=== PATIENT | female | born 1990 | race Two or more races ===

== ENCOUNTER 2018-04-03 13:51 | Emergency (ER) | payer SELFPAY ==
[2018-04-03 14:08] LABS: URINE HCG POC HCG POSITIVE (Negative)
[2018-04-03 14:22] LABS: BILIRUBIN,URINE NEGATIVE (NEG); CLARITY,URINE CLEAR; COLOR,URINE YELLOW; GLUCOSE,URINE NEGATIVE (NEG); NITRITE,URINE NEGATIVE (NEG); PROTEIN,URINE NEGATIVE (NEG-TRACE)
[2018-04-03 14:32] LABS: BACTERIA,URINE 0 /HPF (0-FEW); RBC,URINE 0 /HPF (0-2); SQUAMOUS EPITHELIAL CELL,UR MOD /LPF; WBC,URINE >40 /HPF (0-4)
[2018-04-03] MEDS: IV NORMAL SALINE 1000ML BAG 1,000 ML IV (14:40)
[2018-04-03 14:46] LABS: ADD MAN DIFF? NO
[2018-04-03 14:54] LABS: BASO % 0 % (0-3); EOS # 0.1 x10^3/uL (0.0-0.7); EOS % 1 % (0-3); HEMATOCRIT 35.8 % (36.0-47.0); LYMPH # 1.4 x10^3/uL (1.0-4.8); LYMPH % 21 % (24-48); MEAN CORPUSCULAR HEMOGLOBIN 27 pg (25-35); MEAN CORPUSCULAR HGB CONC 34 g/dL (31-37); MEAN CORPUSCULAR VOLUME 80 fL (79-100); MONO # 0.4 x10^3/uL (0.0-1.1); MONO % 6 % (0-9); NEUT # 4.7 x10^3uL (1.8-7.7); NEUT % 72 % (31-73); PLATELET COUNT 176 x10^3/uL (140-400); RED BLOOD COUNT 4.45 x10^6/uL (3.50-5.40); WHITE BLOOD COUNT 6.5 x10^3/uL (4.0-11.0)
[2018-04-03 14:59] LABS: ANION GAP 6 (6-14); BLOOD UREA NITROGEN 10 mg/dL (7-20); CALCIUM 8.3 mg/dL (8.5-10.1); CARBON DIOXIDE 27 mmol/L (21-32); CHLORIDE 103 mmol/L (98-107); CREATININE 0.7 mg/dL (0.6-1.0); GFR 100.4; GLUCOSE 92 mg/dL (70-99); POTASSIUM 3.8 mmol/L (3.5-5.1); SODIUM 136 mmol/L (136-145)
== END 2018-04-03 16:00 | disposition home or self-care (01) ==
LOC: ER 13:51
DX: O23.40 Unspecified infection of urinary tract in pregnancy, unspecified trimester (principal); Z3A.00 Weeks of gestation of pregnancy not specified
CPT/HCPCS: 36415; 76705; 80048; 81001; 81025; 85025; 96360; 99285-25; J7030

== ENCOUNTER 2018-05-17 10:57 | Emergency (ER) | payer SELFPAY ==
[~2018-05-17] VITALS: Ht 157.5 cm; Wt 68.9 kg
[~2018-05-17 10:57] MED LIST: NITR100C62 PO
[2018-05-17] MEDS ORDERED: ONDANSETRON ODT 4 MG TAB.RAPDIS. PO ONE (11:45)
[2018-05-17 11:51] LABS: BILIRUBIN,URINE NEGATIVE (NEG); CLARITY,URINE CLEAR; COLOR,URINE YELLOW; NITRITE,URINE NEGATIVE (NEG); PH,URINE 6.5; PROTEIN,URINE NEGATIVE (NEG-TRACE)
[2018-05-17 12:01] LABS: SQUAMOUS EPITHELIAL CELL,UR MOD /LPF
[2018-05-17 12:02] LABS: BACTERIA,URINE FEW /HPF (0-FEW)
[2018-05-17 12:03] LABS: RBC,URINE OCC /HPF (0-2)
[2018-05-17] MEDS ORDERED: ONDA4TAB10 SL (13:55)
--- NOTE | 2018-05-17 13:56 | PHYS DOC ---
Past Medical History Past Medical History: No Pertinent History Past Surgical History: No Surgical History Alcohol Use: None Drug Use: None Adult General Chief Complaint Chief Complaint: VOMITING IN HPI HPI Patient is a 27 year old [f__sex] who presents with [] Review of Systems Review of Systems Constitutional: Denies fever or chills [] Eyes: Denies change in visual acuity, redness, or eye pain [] HENT: Denies nasal congestion or sore throat [] Respiratory: Denies cough or shortness of breath [] Cardiovascular: No additional information not addressed in HPI [] GI: Denies abdominal pain, nausea, vomiting, bloody stools or diarrhea [] : Denies dysuria or hematuria [] Musculoskeletal: Denies back pain or joint pain [] Integument: Denies rash or skin lesions [] Neurologic: Denies headache, focal weakness or sensory changes [] Endocrine: Denies polyuria or polydipsia [] All other systems were reviewed and found to be within normal limits, except as documented in this note. Current Medications Current Medications Current Medications Medications (Trade) Dose Ordered Sig/Jon Start Time Stop Time Status Last Admin Dose Admin Ondansetron HCl (Zofran Odt) 4 mg 1X ONCE 05/17/18 11:45 05/17/18 11:46 DC 05/17/18 12:13 4 MG Allergies Allergies Allergies Coded Allergies Type Severity Reaction Last Updated Verified No Known Drug Allergies 04/03/18 No Physical Exam Physical Exam Constitutional: Well developed, well nourished, no acute distress, non-toxic appearance. [] HENT: Normocephalic, atraumatic, bilateral external ears normal, oropharynx moist, no oral exudates, nose normal. [] Eyes: PERRLA, EOMI, conjunctiva normal, no discharge. [] Neck: Normal range of motion, no tenderness, supple, no stridor. [] Cardiovascular:Heart rate regular rhythm, no murmur [] Lungs & Thorax: Bilateral breath sounds clear to auscultation [] Abdomen: Bowel sounds normal, soft, no tenderness, no masses, no pulsatile masses. [] Skin: Warm, dry, no erythema, no rash. [] Back: No tenderness, no CVA tenderness. [] Extremities: No tenderness, no cyanosis, no clubbing, ROM intact, no edema. [] Neurologic: Alert and oriented X 3, normal motor function, normal sensory function, no focal deficits noted. [] Psychologic: Affect normal, judgement normal, mood normal. [] Current Patient Data Vital Signs Vital Signs Date Time Temp Pulse Resp B/P (MAP) Pulse Ox O2 Delivery O2 Flow Rate FiO2 05/17/18 11:30 99.1 93 20 115/56 (75) 99 Room Air 99.1 Lab Values Laboratory Tests Test 05/17/18 11:26 05/17/18 11:28 Urine Collection Type Void Urine Color Yellow Urine Clarity Clear Urine pH 6.5 Urine Specific [place] 1.020 Urine Protein Negative mg/dL (NEG-TRACE) Urine Glucose (UA) Negative mg/dL (NEG) Urine Ketones (Stick) Negative mg/dL (NEG) Urine Blood Negative (NEG) Urine Nitrite Negative (NEG) Urine Bilirubin Negative (NEG) Urine Urobilinogen Dipstick 1.0 mg/dL (0.2 mg/dL) Urine Leukocyte Esterase Negative (NEG) Urine RBC Occ /HPF (0-2) Urine WBC 1-4 /HPF (0-4) Urine Squamous Epithelial Cells Mod /LPF Urine Bacteria Few /HPF (0-FEW) Urine Mucus Marked /LPF POC Urine HCG, Qualitative Hcg positive (Negative) EKG EKG [] Radiology/Procedures Radiology/Procedures [] Course & Med Decision Making Course & Med Decision Making Pertinent Labs and Imaging studies reviewed. (See chart for details) [] Dragon Disclaimer Dragon Disclaimer This electronic medical record was generated, in whole or in part, using a voice recognition dictation system. Departure Departure Impression: Primary Impression: Hyperemesis Disposition: 01 HOME, SELF-CARE Condition: STABLE Referrals: NO PCP (PCP) Patient Instructions: Diet - Hyperemesis Gravidarum, Hyperemesis Gravidarum Additional Instructions: Use the Zofran as directed to increase your fluid and food intake. Follow-up with your bereavement coordinator for your next scheduled visit. If worsening return to the emergency department. Scripts Ondansetron (ZOFRAN ODT) 4 Mg Tab.rapdis 1 TAB SL Q8HRS, #15 TAB Prov: RASHIDA PARK APRN 05/17/18 ARSHIDA PARK APRN May 17, 2018 13:56
[2018-05-17 14:23] VITALS: BP 107/59
== END 2018-05-17 14:24 | disposition home or self-care (01) ==
LOC: ER 10:57
DX: O21.0 Mild hyperemesis gravidarum (principal); Z3A.13 13 weeks gestation of pregnancy
CPT/HCPCS: 81001; 81025; 99283; Q0162

== ENCOUNTER 2018-06-13 22:48 | Emergency (ER) | payer SELFPAY ==
[~2018-06-13] VITALS: Ht 157.5 cm; Wt 70.3 kg
[~2018-06-13 22:48] MED LIST changes: +ONDA4TAB10 SL
--- NOTE | 2018-06-13 23:52 | PHYS DOC ---
Past Medical History Past Medical History: No Pertinent History Past Surgical History: No Surgical History Alcohol Use: None Drug Use: None Adult General Chief Complaint Chief Complaint: ABDOMINAL PAIN IN HPI HPI Patient is a 28 year old female who presents with left flank pain that radiates to left side abdomen. Patient reports she is 18 weeks with LMP 12/09/2017. A0. She sees Dr Rachel Jules and next appt is 2017. Denies any complications with . Denies vaginal bleeding. Does report small amount of fluid leaking yesterday but is unsure if it was urine. Pain started yesterday morning and has continued. Reports flank pain is constant and abdominal pain is intermittent. Denies fever, chills, nausea, vomiting, diarrhea or constipation. Offered Tylenol on arrival and refused. Review of Systems Review of Systems Constitutional: Denies fever or chills Eyes: Denies change in visual acuity, redness, or eye pain HENT: Denies nasal congestion or sore throat Respiratory: Denies cough or shortness of breath Cardiovascular: Denies chest pain, palpitations. GI: Denies nausea, vomiting, bloody stools or diarrhea. Intermittent left sided abdominal pain. : Denies dysuria or hematuria. Musculoskeletal:Left low back pain x two days Integument: Denies rash or skin lesions Neurologic: Denies headache, focal weakness or sensory changes Endocrine: Denies polyuria or polydipsia All other systems were reviewed and found to be within normal limits, except as documented in this note. Current Medications Current Medications Current Medications Medications (Trade) Dose Ordered Sig/Jon Start Time Stop Time Status Last Admin Dose Admin Sodium Chloride 1,000 ml @ 1,000 mls/hr Q1H 06/14/18 00:00 06/14/18 00:59 DC 06/14/18 00:00 1,000 MLS/HR Allergies Allergies Allergies Coded Allergies Type Severity Reaction Last Updated Verified No Known Drug Allergies 04/03/18 No Physical Exam Physical Exam Constitutional: Well developed, well nourished, no acute distress, non-toxic appearance. Smiling HENT: Normocephalic, atraumatic, bilateral external ears normal, oropharynx moist, no oral exudates, nose normal. Moist mucous membranes Eyes: PERRLA, EOMI, conjunctiva normal, no discharge. [] Neck: Normal range of motion, no tenderness, supple, no stridor. Cardiovascular:Heart rate regular rhythm, no murmur Lungs & Thorax: Bilateral breath sounds clear to auscultation Abdomen: Bowel sounds normal, soft, no tenderness, no masses, no pulsatile masses. Pelvic: OS closed and without erythema. Minimal Skin: Warm, dry, no erythema, no rash. [] Back: No tenderness, no CVA tenderness. [] Extremities: No tenderness, no cyanosis, no clubbing, ROM intact, no edema. [] Neurologic: Alert and oriented X 3, normal motor function, normal sensory function, no focal deficits noted. [] Psychologic: Affect normal, judgement normal, mood normal. [] Current Patient Data Vital Signs Vital Signs Date Time Temp Pulse Resp B/P (MAP) Pulse Ox O2 Delivery O2 Flow Rate FiO2 06/13/18 23:48 98.4 89 18 116/86 (96) 99 Room Air 98.4 Lab Values Laboratory Tests Test 06/13/18 23:40 06/14/18 00:13 Urine Collection Type Unknown Urine Color Smita Urine Clarity Clear Urine pH 6.0 Urine Specific [place] 1.025 Urine Protein Negative mg/dL (NEG-TRACE) Urine Glucose (UA) Negative mg/dL (NEG) Urine Ketones (Stick) Negative mg/dL (NEG) Urine Blood Negative (NEG) Urine Nitrite Negative (NEG) Urine Bilirubin Small (NEG) Urine Urobilinogen Dipstick 1.0 mg/dL (0.2 mg/dL) Urine Leukocyte Esterase Negative (NEG) Urine RBC Occ /HPF (0-2) Urine WBC 1-4 /HPF (0-4) Urine Squamous Epithelial Cells Mod /LPF Urine Bacteria Few /HPF (0-FEW) Urine Mucus Marked /LPF White Blood Count 7.6 x10^3/uL (4.0-11.0) Red Blood Count 4.03 x10^6/uL (3.50-5.40) Hemoglobin 12.1 g/dL (12.0-15.5) Hematocrit 34.1 % (36.0-47.0) L Mean Corpuscular Volume 85 fL (79-100) Mean Corpuscular Hemoglobin 30 pg (25-35) Mean Corpuscular Hemoglobin Concent 36 g/dL (31-37) Red Cell Distribution Width 17.6 % (11.5-14.5) H Platelet Count 185 x10^3/uL (140-400) Neutrophils (%) (Auto) 65 % (31-73) Lymphocytes (%) (Auto) 26 % (24-48) Monocytes (%) (Auto) 7 % (0-9) Eosinophils (%) (Auto) 1 % (0-3) Basophils (%) (Auto) 0 % (0-3) Neutrophils # (Auto) 5.0 x10^3uL (1.8-7.7) Lymphocytes # (Auto) 2.0 x10^3/uL (1.0-4.8) Monocytes # (Auto) 0.5 x10^3/uL (0.0-1.1) Eosinophils # (Auto) 0.1 x10^3/uL (0.0-0.7) Basophils # (Auto) 0.0 x10^3/uL (0.0-0.2) Maternal Serum HCG Beta Subunit 11094 mIU/mL (0-5) H Sodium Level 137 mmol/L (136-145) Potassium Level 3.9 mmol/L (3.5-5.1) Chloride Level 103 mmol/L (98-107) Carbon Dioxide Level 26 mmol/L (21-32) Anion Gap 8 (6-14) Blood Urea Nitrogen 7 mg/dL (7-20) Creatinine 0.6 mg/dL (0.6-1.0) Estimated GFR (Cockcroft-Gault) 119.0 BUN/Creatinine Ratio 12 (6-20) Glucose Level 84 mg/dL (70-99) Calcium Level 8.8 mg/dL (8.5-10.1) Total Bilirubin 0.3 mg/dL (0.2-1.0) Aspartate Amino Transferase (AST) 10 U/L (15-37) L Alanine Aminotransferase (ALT) 11 U/L (14-59) L Alkaline Phosphatase 57 U/L (46-116) Total Protein 7.1 g/dL (6.4-8.2) Albumin 3.0 g/dL (3.4-5.0) L Albumin/Globulin Ratio 0.7 (1.0-1.7) L Laboratory Tests 06/14/18 00:13 Laboratory Tests 06/14/18 00:13 Microbiology 9/17/18 Wet Prep - Final, Complete EKG EKG [] Radiology/Procedures Radiology/Procedures [] Course & Med Decision Making Course & Med Decision Making Pertinent Labs and Imaging studies reviewed. (See chart for details) [] Mahendra Disclaimer Mahendra Disclaimer This electronic medical record was generated, in whole or in part, using a voice recognition dictation system. Departure Departure Impression: Primary Impression: Abdominal pain during Additional Impression: Bacterial vaginosis Disposition: HOME, SELF-CARE Condition: STABLE Referrals: UNKNOWN PCP NAME (PCP) Patient Instructions: Abdominal Pain During , Adam-ga-Bezy, Bacterial Vaginosis, Round Ligament Pain Additional Instructions: Follow up with your OB as soon as possible. Take medication as prescribed. Wear belly band as discussed. Return immediately if problems or any concerns. Scripts Metronidazole (METRONIDAZOLE) 500 Mg Tablet 1 TAB PO BID, #14 TAB Prov: YAZMIN CUTLER APRN 06/14/18 Problem Qualifiers YAZMIN CUTLER APRN Jun 13, 2018 23:51
[2018-06-14] MEDS ORDERED: IV NORMAL SALINE 1000ML BAG 1,000 ML IV SCH
[2018-06-14 00:03] LABS: BILIRUBIN,URINE SMALL (NEG); CLARITY,URINE CLEAR; COLOR,URINE AMBER; NITRITE,URINE NEGATIVE (NEG); PROTEIN,URINE NEGATIVE (NEG-TRACE)
[2018-06-14 00:15] LABS: BACTERIA,URINE FEW /HPF (0-FEW); RBC,URINE OCC /HPF (0-2); SQUAMOUS EPITHELIAL CELL,UR MOD /LPF
[2018-06-14 00:21] LABS: BASO % 0 % (0-3); EOS # 0.1 x10^3/uL (0.0-0.7); EOS % 1 % (0-3); HEMATOCRIT 34.1 % (36.0-47.0); HEMOGLOBIN 12.1 g/dL (12.0-15.5); LYMPH % 26 % (24-48); MEAN CORPUSCULAR HEMOGLOBIN 30 pg (25-35); MEAN CORPUSCULAR HGB CONC 36 g/dL (31-37); MEAN CORPUSCULAR VOLUME 85 fL (79-100); MONO # 0.5 x10^3/uL (0.0-1.1); MONO % 7 % (0-9); NEUT % 65 % (31-73); PLATELET COUNT 185 x10^3/uL (140-400); RED BLOOD COUNT 4.03 x10^6/uL (3.50-5.40); RED CELL DISTRIBUTION WIDTH 17.6 % (11.5-14.5); WHITE BLOOD COUNT 7.6 x10^3/uL (4.0-11.0)
[2018-06-14 00:29] LABS: CALCIUM 8.8 mg/dL (8.5-10.1); CREATININE 0.6 mg/dL (0.6-1.0); POTASSIUM 3.9 mmol/L (3.5-5.1)
[2018-06-14 00:36] LABS: ALBUMIN/GLOBULIN RATIO 0.7 (1.0-1.7); TOTAL BILIRUBIN 0.3 mg/dL (0.2-1.0); TOTAL PROTEIN 7.1 g/dL (6.4-8.2)
--- NOTE | 2018-06-14 01:00 | RAD ---
Examination: Obstetric ultrasound limited HISTORY: History of left abdominal pelvic pain COMPARISON: None available FINDINGS: Single living intrauterine identified with heart rate of 141 bpm. movement is seen. Cardiac activity seen. position is cephalic. Biparietal diameter measures 3.83 cm corresponding to 17 weeks and 5 days. Head circumference measures 14.2 cm corresponding to 17 weeks and 4 days. Abdominal circumference measures 12.1 cm corresponding to 17 weeks and 6 days. Femur length measures 2.4 cm corresponding to 17 weeks and 2 days. Head circumference to abdominal circumference ratio 1.17. Estimated weight is 201 g. LMP is 02/07/2018. Clinical age 18 weeks and 1 day with expected date of delivery by LMP 11/14/2018. Estimated gestational age by this ultrasound 17 weeks and 4 days. Estimated date of delivery by this ultrasound 11/18/2018. Placenta is grade 0. Placenta is located in the fundus and in the posterior wall. The ovaries are not well-visualized. IMPRESSION: Single living intrauterine with heart rate of 141 bpm. Electronically signed by: Campos Hardy MD (06/14/2018 12:56 AM) [facility]
[2018-06-14] MEDS ORDERED: METR500T8 PO (01:46)
[2018-06-14 01:55] VITALS: BP 116/84
[2018-06-15 15:37] LABS: GC PROBE Negative (Negative)
== END 2018-06-14 01:56 | disposition home or self-care (01) ==
LOC: ER 22:48
DX: O23.592 Infection of other part of genital tract in pregnancy, second trimester (principal); M54.5 Low back pain; R10.9 Unspecified abdominal pain; B96.89 Other specified bacterial agents as the cause of diseases classified elsewhere; Z3A.18 18 weeks gestation of pregnancy
CPT/HCPCS: 36415; 76815; 80053; 81001; 84702; 85025; 87491; 87591; 99285; J7030; Q0111

== ENCOUNTER 2018-11-17 22:25 | Inpatient (IN) | payer SELFPAY ==
[~2018-11-17] VITALS: Ht 157.5 cm; Wt 83.5 kg
[~2018-11-17 22:25] MED LIST changes: +METR-34 PO
[2018-11-17] MEDS ORDERED: IV RINGERS,LACTATED 1000ML 1,000 ML IV PRN (22:45)
[2018-11-17 22:48] LABS: BILIRUBIN,URINE NEGATIVE (NEG); CLARITY,URINE CLEAR; COLOR,URINE YELLOW; NITRITE,URINE NEGATIVE (NEG); PH,URINE 6.5; PROTEIN,URINE NEGATIVE (NEG-TRACE)
[2018-11-17 22:53] LABS: BACTERIA,URINE FEW /HPF (0-FEW); RBC,URINE RARE /HPF (0-2)
[2018-11-17 22:54] LABS: SQUAMOUS EPITHELIAL CELL,UR MOD /LPF
[2018-11-17 22:56] LABS: BARBITURATES NEG (NEG); BENZODIAZEPINES NEG (NEG); CANNABINOIDS NEG (NEG); COCAINE NEG (NEG); METHADONE NEG (NEG); OPIATES NEG (NEG); PHENCYCLIDINE NEG (NEG)
[2018-11-17 22:57] LABS: AMPHETAMINE/METHAMPHETAMINE NEG (NEG)
[2018-11-18] MEDS ORDERED: ceFAZolin SODIUM 1 GM in IV DEXTROSE 5% 50 ML IV SCH (03:30)
[2018-11-18] MEDS ORDERED: BUTORPHANOL 2 MG/ML VIAL. IV PRN ×2 (10:15)
[2018-11-18] MEDS ORDERED: MAG HYDROX/ALUMINUM HYD/SIMETH 30 ML ORAL.SUSP PO PRN ×3 (10:15→20:15)
[2018-11-18] MEDS ORDERED: LIDOCAINE 1% PF 30 ML VIAL. INJ PRN (10:15)
[2018-11-18] MEDS ORDERED: TERBUTALINE 1 MG/ML VIAL. SQ PRN (10:15)
[2018-11-18] MEDS ORDERED: OXYTOCIN 30 UNIT/500 ML PREMIX 500 ML IV PRN ×4 (10:15→20:15)
[2018-11-18] MEDS ORDERED: CITRIC ACID/SODIUM CITRATE 30 ML SOLUTION. PO PRN (10:15)
[2018-11-18] MEDS ORDERED: 0.9 % SODIUM CHLORIDE 10 ML DISP.SYRIN. IV PRN ×3 (10:15→20:15)
[2018-11-18] MEDS: IV RINGERS,LACTATED 1000ML 1,000 ML IV SCH ×3 (10:33→23:43)
[2018-11-18 10:52] LABS: HEMATOCRIT 30.3 % (36.0-47.0); HEMOGLOBIN 9.6 g/dL (12.0-15.5); RED BLOOD COUNT 3.98 x10^6/uL (3.50-5.40); RED CELL DISTRIBUTION WIDTH 16.3 % (11.5-14.5); WHITE BLOOD COUNT 8.9 x10^3/uL (4.0-11.0)
[2018-11-18 11:00] VITALS: BP 136/86
--- NOTE | 2018-11-18 12:01 | PDOC1 ---
OB - History Hx of Present Care: Good Care Ultrasounds: Normal mid trimester US Obstetrical Complications: None Medical Complications: None Past Family/Social History * Past Medical, Surgical, Family and Obstetric Histories reviewed from chart. Rubella: Immune RPR/VDRL: Negative GBS Status: Negative HBsAG: Negative OB - Chief Complaint & HPI Date of Admission: Date of Admission: Nov 17, 2018 at 22:25 Chief Complaint/History : 5 Para: 4 EGA: 39 Reason for admission: active labor Admission Nurse Assessment Rev: Yes OB - Admission Exam Physical Exam Vitals: VS - Last 72 Hours, by Label Date Time Temp Pulse Resp B/P (MAP) Pulse Ox O2 Delivery O2 Flow Rate FiO2 11/18/18 11:00 98.5 85 18 136/86 (103) 98.5 HEENT: Normal Heart: Regular Rate Lungs: Clear Abdomen: Gravid, Non tender, Soft Extremities: Edema Reflexes: Normal Cervical Dilatation: 2cm Effacement: 75% Station: -3 Membranes: Intact Heart Rate: Normal Accelerations: Accelerations Present Decelerations: No decelerations Contractions on Admission: < 5 Minutes Apart Intensity: Moderate Text A: 39 wks IUP Active labor P: Admit for labor management. JACOB TIPTON Jr, MD Nov 18, 2018 12:01
[2018-11-18] MEDS: fentaNYL PF VIAL 100 MCG/2 ML VIAL IV PRN ×2 (15:04→16:13)
[2018-11-18] MEDS ORDERED: IBUPROFEN 400 MG TABLET. PO PRN (17:45)
[2018-11-18] MEDS ORDERED: SIMETHICONE 80 MG TAB.CHEW PO PRN ×2 (17:45→20:15)
[2018-11-18] MEDS ORDERED: diphenhydrAMINE HCL 25 MG CAPSULE PO PRN (17:45)
[2018-11-18] MEDS ORDERED: MAGNESIUM HYDROXIDE 2,400 MG/30 ML ORAL.SUSP. PO PRN ×2 (17:45→20:15)
[2018-11-18] MEDS ORDERED: ZOLPIDEM 5 MG TABLET. PO PRN ×2 (17:45→20:15)
[2018-11-18] MEDS ORDERED: HYDROCORTISONE 1% TOPICAL OINTMENT 30GM TUBE. TP PRN (17:45)
[2018-11-18] MEDS ORDERED: PHENYLEPH/MINERAL OIL/PETROLAT RECTAL OINTMENT 28GM TUBE. RC PRN (17:45)
[2018-11-18] MEDS ORDERED: BENZOCAINE 20% TOPICAL AEROSOL SPRAY 57GM CAN. TP PRN (17:45)
[2018-11-18] MEDS ORDERED: ACETAMINOPHEN 325 MG TABLET. PO PRN (17:45)
[2018-11-18] MEDS ORDERED: CITRIC ACID/SODIUM CITRATE 30 ML SOLUTION. PO ONE (19:30)
[2018-11-18] MEDS ORDERED: MORPHINE PF 5 MG/10 ML VIAL. ONE (20:07)
[2018-11-18] MEDS ORDERED: fentaNYL PF VIAL 100 MCG/2 ML VIAL ONE (20:07)
[2018-11-18] MEDS ORDERED: ONDANSETRON PF 4 MG/2 ML VIAL. IV PRN (20:15)
[2018-11-18] MEDS ORDERED: MMR per PROTOCOL. MC PRN (20:15)
[2018-11-18] MEDS ORDERED: oxyCODONE/APAP 5/325 1 TAB TABLET PO PRN (20:15)
[2018-11-18] MEDS ORDERED: diphenhydrAMINE ORAL ELIXIR 12.5 MG/5 ML ML PO PRN (20:15)
[2018-11-18] MEDS ORDERED: OXYTOCIN 10 UNIT/ML VIAL. ONE ×6 (20:17→20:25)
[2018-11-18] MEDS ORDERED: METOCLOPRAMIDE HCL 10 MG/2 ML VIAL. ONE (20:29)
--- NOTE | 2018-11-18 20:59 | PDOC ---
BRIEF OPERATIVE NOTE Pre-Op Diagnosis TIUP FTP Post-Op Diagnosis Same Procedure Performed Primary LTC/S Surgeon Ilene Incident Response Coordinator none Anesthesia Type: Regional Blood Loss 500cc Specimens Obtained Blood gases Findings male Complications none DEYA BELTRÁN MD Nov 18, 2018 20:59
--- NOTE | 2018-11-18 21:29 | OP ---
DATE OF SURGERY: 11/18/2018 PREOPERATIVE DIAGNOSIS: Term intrauterine , failure to progress. POSTOPERATIVE DIAGNOSIS: Term intrauterine , failure to progress. PROCEDURE: Primary low transverse . SURGEON: Praneeth Odom MD. MANAGER ORANGE: None. ANESTHESIA: Regional/spinal. ESTIMATED BLOOD LOSS: 500 mL. FINDINGS: Male , Apgars 8, 9 and 9, weight pending at time of this dictation. Normal uterus, tubes and ovaries. COMPLICATIONS: None. CONDITION: Stable. DESCRIPTION OF PROCEDURE: After risks, benefits, indications and alternatives were discussed in detail with the patient, the patient was brought to OR theater, placed in the supine position with left lateral uterine displacement. After adequate regional anesthesia, the patient was prepped and draped in usual sterile manner. A low transverse Pfannenstiel incision was made sharply with a scalpel, carried down through subcutaneous tissue with the scalpel and Bovie was used to isidra the fascia in the midline and extended laterally in each direction with Barnes scissors. Upper edge of rectus fascia was grasped x 2 with Gloria clamps. Underlying rectus muscle both bluntly and sharply with Bovie cautery. The same procedure was carried out on lower edge of rectus fascia. Rectus muscles split in midline and extended superiorly and inferiorly with Bovie cautery. Peritoneum was entered bluntly with gentle stretch on rectus muscle, room was made for delivery of the . Ace retractor was placed within the pelvic cavity. Low transverse hysterotomy incision was made sharply with a scalpel, extended laterally and upwardly with gloved hand. Care was taken not injuring underlying structures. Gloved hand was placed in the lower uterine segment, used to elevate head with fundal pressure from the automotive parts counter assistant and the was delivered on anterior abdominal wall. Infant cried spontaneously and moved all extremities. Cord was doubly clamped, transected cord between two clamps. Infant was bulb suctioned and handed to nursing staff in attendance. Cord segment was taken for pH. Cord blood samples were taken. Placenta delivered spontaneously, intact 3-vessel cord. Uterus was wiped free of any adherent membranes. Low transverse hysterotomy incision was reapproximated with 0 Monocryl in running locking manner, imbricated in a horizontal mattress stitch, fascia with 0 Monocryl. The bladder flap was reapproximated with 3-0 Vicryl in a running manner. The rectus muscle and the peritoneum were brought to the midline with 3-0 Vicryl in a horizontal mattress stitch fashion. Rectus muscle was inspected and noted to be hemostatic. Rectus fascia was reapproximated with a self-retaining 0 PDS. Subcutaneous tissue was irrigated copiously with warm normal saline. Aureliano's fascia was reapproximated with 2-0 plain. Skin was reapproximated with Insorb daly. Sponge, needle, instrument counts correct x 2 per nursing staff. The patient went to postop anesthesia recovery in stable condition. PRANEETH ODOM MD DR: KERRY/stephie JOB#: [id number] / [id number]
[2018-11-18] MEDS ORDERED: IBUPROFEN 400 MG TABLET. PO SCH (22:00)
[2018-11-19] MEDS: KETOROLAC 30 MG/ML VIAL. IV PRN ×2 (00:16→10:23)
[2018-11-19 00:18] VITALS: BP 102/52
[2018-11-19 01:10] VITALS: BP 97/63
[2018-11-19 05:45] VITALS: BP 108/54
[2018-11-19 06:00] LABS: BASO % 0 % (0-3); EOS % 0 % (0-3); HEMATOCRIT 24.7 % (36.0-47.0); HEMOGLOBIN 7.9 g/dL (12.0-15.5); LYMPH # 1.6 x10^3/uL (1.0-4.8); LYMPH % 10 % (24-48); MEAN CORPUSCULAR HEMOGLOBIN 24 pg (25-35); MEAN CORPUSCULAR HGB CONC 32 g/dL (31-37); MEAN CORPUSCULAR VOLUME 76 fL (79-100); MONO # 0.8 x10^3/uL (0.0-1.1); MONO % 5 % (0-9); NEUT # 13.9 x10^3uL (1.8-7.7); NEUT % 85 % (31-73); PLATELET COUNT 160 x10^3/uL (140-400); RED BLOOD COUNT 3.26 x10^6/uL (3.50-5.40); RED CELL DISTRIBUTION WIDTH 16.5 % (11.5-14.5); WHITE BLOOD COUNT 16.4 x10^3/uL (4.0-11.0)
[2018-11-19] MEDS ORDERED: FERROUS SULFATE 325 MG TABLET. PO SCH (08:00)
[2018-11-19 09:34] LABS: % LYMPHS 14 % (24-48); % SEGS 86 % (35-66); PLT ESTIMATE ADEQUATE (ADEQUATE)
[2018-11-19 09:36] LABS: HYPOCHROMIA SLIGHT
[2018-11-19] MEDS: IV RINGERS,LACTATED 1000ML 1,000 ML IV SCH (09:52)
[2018-11-19] MEDS: DOCUSATE SODIUM 100 MG CAPSULE. PO PRN (10:23)
--- NOTE | 2018-11-19 13:27 | NUR ---
SS following up with referral for WIC information. SS met with mother and infant RN and they reported no other needs at this time. SS met with infants mother in room and provided information for WIC. Infants mother reported no other needs at this time.
[2018-11-19 15:00] VITALS: BP 95/56
[2018-11-19 18:15] VITALS: BP 91/49
[2018-11-19] MEDS: IBUPROFEN 400 MG TABLET. PO SCH (18:28)
[2018-11-19] MEDS: oxyCODONE/APAP 5/325 1 TAB TABLET PO PRN (18:29)
[2018-11-19 23:06] VITALS: BP 97/52
[2018-11-20] MEDS: IBUPROFEN 400 MG TABLET. PO SCH ×3 (04:09→21:52)
[2018-11-20] MEDS: oxyCODONE/APAP 5/325 1 TAB TABLET PO PRN ×3 (04:09→18:21)
[2018-11-20 06:02] VITALS: BP 112/72
--- NOTE | 2018-11-20 11:19 | PDOC ---
Provider Note Provider Note Doing well VSS Incision CDI FU in AM DEYA BELTRÁN MD Nov 20, 2018 11:19
[2018-11-20 11:37] VITALS: BP 106/69
[2018-11-20] MEDS: FERROUS SULFATE 325 MG TABLET. PO SCH ×2 (11:43→18:20)
[2018-11-20 18:20] VITALS: BP 107/70
[2018-11-20 23:11] VITALS: BP 109/72
[2018-11-21] MEDS: IBUPROFEN 400 MG TABLET. PO SCH ×2 (03:18→13:25)
[2018-11-21 06:17] VITALS: BP 115/65
--- NOTE | 2018-11-21 08:03 | PDOC3 ---
OB DISCHARGE SUMMARY DATE OF ADMISSION: 11/18/18 DATE OF DISCHARGE: 11/21/18 REASON FOR ADMISSION: section INTRAPARTUM PROCEDURES: : Low Cerv Trans DISCHARGE DIAGNOSIS: Term Delivered DISCHARGE INFORMATION: Activity (ad tere), Diet (regular), Instructions (pelvic rest x 6 wks, no driving x 2 wks, no lifting > 20 lbs x 6 wks) HOSPITAL COURSE Term gestation delivered via repeat c/s without complications. JACOB TIPTON Jr, MD Nov 21, 2018 08:03
--- NOTE | 2018-11-21 08:03 | DISCH ---
DISCHARGE INSTRUCTIONS Condition on Discharge Condition on Discharge: Stable Activity After Discharge Activity Instructions for Disc: Activity as tolerated Lifting Instructions after Dis: No heavy lifting Driving Instructions after Dis: No driving for 2 weeks Diet after Discharge Diet after Discharge: Regular Contacting the DRBrad after DC Call your doctor for: Concerns you may have Follow-Up Follow up with: Dr. Odom in 1 week. JACOB TIPTON Jr, MD Nov 21, 2018 08:03
[2018-11-21] MEDS ORDERED: OXYC1TAB15 PO (08:05)
[2018-11-21] MEDS ORDERED: NAPR-514 PO (08:05)
[2018-11-21] MEDS ORDERED: DOCU-109 PO (08:05)
[2018-11-21] MEDS: DOCUSATE SODIUM 100 MG CAPSULE. PO PRN (08:20)
[2018-11-21] MEDS: FERROUS SULFATE 325 MG TABLET. PO SCH ×2 (08:20→17:45)
[2018-11-21] MEDS: oxyCODONE/APAP 5/325 1 TAB TABLET PO PRN ×4 (08:21→17:45)
[2018-11-21 12:28] VITALS: BP 106/73
[2018-11-21 17:40] VITALS: BP 123/67
--- NOTE | 2018-11-21 17:50 | NUR ---
Discharge Note: Pt. denies questions regarding discharge care instructions and [place] Policy. Significant other is going to pharmacy to sisal picker Pt.'s prescriptions. Additional vaginal pads, underwear, and breast pads provided. Pt. reports successful use of breast pump as instructed by RN. Pt. denies needs at this time. Discharged to Boarder Status. Ismael Schultz RN
== END 2018-11-21 17:50 | disposition home or self-care (01) | DRG 788 ==
LOC: 3 SO LND 22:25 → OBSVTOIN 22:25 → INTOOBSV 22:25 → 3 NORTH 11-19 00:12
PROVIDERS: ADMIT Specialist; ATTEND Specialist
PROC: 10D00Z1 Extraction of Products of Conception, Low, Open Approach (ICD-10-PCS; principal; 2018-11-18)
DX: O62.2 Other uterine inertia (principal); Z37.0 Single live birth; Z3A.39 39 weeks gestation of pregnancy
CPT/HCPCS: 36415; 80307; 81001; 85007; 85025; 85027; 86592; 86850; 86900; 86901; 87086; J0690; J0696; J1885; J2270; J2590; J2765; J3010; J7120

== ENCOUNTER 2020-10-24 18:25 | Emergency (ER) | payer SELFPAY ==
[~2020-10-24] VITALS: Ht 172.7 cm; Wt 93.6 kg
[~2020-10-24 18:25] MED LIST changes: +DOCU-109 PO; +NAPR-514 PO; +OXYC1TAB15 PO
--- NOTE | 2020-10-24 18:58 | PHYS DOC ---
Past Medical History Past Medical History: No Pertinent History Past Surgical History: No Surgical History Smoking Status: Never Smoker Alcohol Use: None Drug Use: None General Adult EDM: Chief Complaint: VAGINAL BLEEDING HPI: HPI: Patient is a 30 year old female who presents with vaginal bleeding going thro ugh 5-6 pads a day for the last 3 weeks and she states about 2 days ago she began having some bright red clots at any given time. States she does have a Mirena in place. 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 She states she is having sharp right lower quadrant pain with this. She states that she does not have any concerns for sexually transmitted diseases at this time. She denies any abnormal other vaginal discharge or signs of bleeding. She states she usually has a period with her Mirena but it does not usually last this long. Patient denies nausea, vomiting, diarrhea, constipation, chest pain, shortness of air, cough, nasal congestion, headache, numbness or tingling, focal weakness. She does state that she does feel some generalized allover weakness and some dizziness at times. Rates her pain 7 out of 10 states it stays in the right lower quadrant does not radiate. States nothing makes it better or worse. She did take some ibuprofen at 1500 today. Review of Systems: Review of Systems: Constitutional: Denies fever or chills. [] Eyes: Denies change in visual acuity. [] HENT: Denies nasal congestion or sore throat. [] Respiratory: Denies cough or shortness of breath. [] Cardiovascular: Denies chest pain or edema. [] GI: +RLQ abdominal pain, denies nausea, vomiting, bloody stools or diarrhea. [] : Denies dysuria. +Vaginal bleeding x 3 weeks[] Musculoskeletal: Denies back pain or joint pain. +Generalized weakness[] Integument: Denies rash. [] Neurologic: Denies headache, focal weakness or sensory changes. +Dizziness [] Endocrine: Denies polyuria or polydipsia. [] Lymphatic: Denies swollen glands. [] Psychiatric: Denies depression or anxiety. [] Heart Score: Risk Factors: Risk Factors: DM, Current or recent (<one month) smoker, HTN, HLP, family history of CAD, obesity. Risk Scores: Score 0 - 3: 2.5% MACE over next 6 weeks - Discharge Home Score 4 - 6: 20.3% MACE over next 6 weeks - Admit for Clinical Observation Score 7 - 10: 72.7% MACE over next 6 weeks - Early Invasive Strategies Allergies: Allergies: Allergies Coded Allergies Type Severity Reaction Last Updated Verified No Known Drug Allergies 04/03/18 No Physical Exam: PE: Constitutional: Well developed, well nourished, no acute distress, non-toxic appearance. [] HENT: Normocephalic, atraumatic, bilateral external ears normal, oropharynx moist, no oral exudates, nose normal. [] Eyes: PERRLA, EOMI, conjunctiva normal, no discharge. [] Neck: Normal range of motion, no tenderness, supple, no stridor. [] Cardiovascular:Heart rate regular rhythm, no murmur [] Lungs & Thorax: Bilateral breath sounds clear to auscultation [] Abdomen: Bowel sounds normal, soft, RLQ tenderness, no masses, no pulsatile masses. [] Skin: Warm, dry, no erythema, no rash. [] Back: No tenderness, no CVA tenderness. [] Extremities: No tenderness, no cyanosis, no clubbing, ROM intact, no edema. [] Neurologic: Alert and oriented X 3, normal motor function, normal sensory function, no focal deficits noted. [] Psychologic: Affect normal, judgement normal, mood normal. [] Current Patient Data: Labs: Laboratory Tests Test 10/24/20 18:38 POC Urine HCG, Qualitative Hcg negative (Negative) EKG: EKG: [] Radiology/Procedures: Radiology/Procedures: [] Impression: [facility] [address] [place], [place] [id number] IMAGING REPORT Signed PATIENT: KHLOE MONDRAGON GACCOUNT: [id number] : 1990 LOCATION: ER AGE: 30 SEX: F EXAM STATUS: REG ER ORD. PHYSICIAN: DERRELL REYES APRN REASON: right lower quad pain, heavy vaginal bleeding x 3 weeks PROCEDURE: PELVIS COMPLETE Ultrasound pelvis complete HISTORY: Right lower quadrant pain and heavy vaginal bleeding for 3 weeks Sonographic examination of the pelvis was performed by transabdominal technique. Multiple static images were obtained. There is an IUD in the uterus which appears appropriately positioned. The ovaries appear normal normal blood flow. The right ovary measures 3.1 x 1.8 x 1.5 cm. Left ovary measures 3.5 x 2.3 x 2.5 cm. Interrogation of the right lower quadrant was performed but demonstrates no focal abnormality. The appendix is not identified. IMPRESSION: Negative examination. Electronically signed by: Mariam Wyatt III, MD (10/24/2020 10:13 PM) [facility] DICTATED and SIGNED BY: MARIAM WYATT III, MD DATE: 10/24/20 [id number] 0 Course & Med Decision Making: Course & Med Decision Making Pertinent Labs and Imaging studies reviewed. (See chart for details) See HPI. Alert and oriented x4. Ambulatory with a steady gait. Skin pink warm and dry. Afebrile. Vital signs within normal limits. Abdomen is soft but tender to the right lower quadrant. Chlamydia and gonorrhea is sent off and a wet prep was done. No CVA tenderness. She denies any urinary symptoms. Pelvic Exam: Child Care Aide present Abdomen: RLQ External Genitalia: Normal Skin Speculum: Normal vaginal mucosa, small amount bloody cervical discharge, no Clots Bimanual: No adnexal masses or tenderness, No CMT Blood work is unremarkable. Urine appears it may be infected. Ultrasound shows no acute findings. Patient can follow-up with her doctor as planned on 11. [] Dragon Disclaimer: Dragon Disclaimer: This electronic medical record was generated, in whole or in part, using a voice recognition dictation system. Departure Departure Impression: Primary Impression: Vaginal bleeding Additional Impression: UTI (urinary tract infection) Qualified Codes: N39.0 - Urinary tract infection, site not specified; R31.9 - Hematuria, unspecified Disposition: DC HOME SELF CARE/HOMELESS Condition: STABLE Referrals: UNKNOWN PCP NAME (PCP) Patient Instructions: Urinary Tract Infection Additional Instructions: Drink plenty of fluids. Follow-up with your primary care physician as soon as p ossible or the SOFTWARE QUALITY ANALYST. Take Tylenol or ibuprofen to help with your pain. Take medication as prescribed and with food. If you begin to go through more than 1 pad an hour return to the emergency room. Scripts Cephalexin (CEPHALEXIN) 500 Mg Capsule 1 CAP PO BID, #20 CAP Prov: DERRELL REYES APRN 10/24/20 DERRELL REYES APRN Oct 24, 2020 18:58
[2020-10-24 19:19] LABS: BILIRUBIN,URINE SMALL (NEG); CLARITY,URINE CLOUDY; COLOR,URINE AMBER; NITRITE,URINE NEGATIVE (NEG); PROTEIN,URINE 30 mg/dL (NEG-TRACE)
[2020-10-24 19:25] LABS: BASO % 0 % (0-3); EOS # 0.1 x10^3/uL (0.0-0.7); EOS % 1 % (0-3); HEMATOCRIT 35.9 % (36.0-47.0); HEMOGLOBIN 12.6 g/dL (12.0-15.5); LYMPH # 2.6 x10^3/uL (1.0-4.8); LYMPH % 31 % (24-48); MEAN CORPUSCULAR HEMOGLOBIN 31 pg (25-35); MEAN CORPUSCULAR HGB CONC 35 g/dL (31-37); MEAN CORPUSCULAR VOLUME 88 fL (79-100); MONO # 0.4 x10^3/uL (0.0-1.1); MONO % 5 % (0-9); NEUT # 5.3 x10^3/uL (1.8-7.7); NEUT % 63 % (31-73); PLATELET COUNT 187 x10^3/uL (140-400); RED BLOOD COUNT 4.08 x10^6/uL (3.50-5.40); RED CELL DISTRIBUTION WIDTH 12.9 % (11.5-14.5); WHITE BLOOD COUNT 8.5 x10^3/uL (4.0-11.0)
[2020-10-24 19:33] LABS: BACTERIA,URINE FEW /HPF (0-FEW); RBC,URINE TNTC /HPF (0-2)
[2020-10-24 19:34] LABS: PROTHROMBIN TIME PATIENT 13.8 SEC (11.7-14.0)
[2020-10-24 19:39] LABS: CALCIUM 8.8 mg/dL (8.5-10.1); CREATININE 0.7 mg/dL (0.6-1.0); GFR 98.3; POTASSIUM 3.6 mmol/L (3.5-5.1)
[2020-10-24 19:45] LABS: ALBUMIN 3.9 g/dL (3.4-5.0); ALBUMIN/GLOBULIN RATIO 1.2 (1.0-1.7); TOTAL BILIRUBIN 0.4 mg/dL (0.2-1.0); TOTAL PROTEIN 7.1 g/dL (6.4-8.2)
[2020-10-24] MEDS ORDERED: IV NORMAL SALINE 1000ML BAG 1,000 ML IV ONE (19:45)
[2020-10-24] MEDS ORDERED: fentaNYL PF VIAL 100 MCG/2 ML VIAL IVP ONE (20:00)
[2020-10-24 21:08] VITALS: BP 122/65
--- NOTE | 2020-10-24 22:16 | RAD ---
Ultrasound pelvis complete HISTORY: Right lower quadrant pain and heavy vaginal bleeding for 3 weeks Sonographic examination of the pelvis was performed by transabdominal technique. Multiple static imag es were obtained. There is an IUD in the uterus which appears appropriately positioned. The ovaries appear normal kala l blood flow. The right ovary measures 3.1 x 1.8 x 1.5 cm. Left ovary measures 3.5 x 2.3 x 2.5 cm. Interrogation of the right lower quadrant was performed but demonstrates no focal abnormality. The ap pendix is not identified. IMPRESSION: Negative examination. Electronically signed by: Steve Craven III, MD (10/24/2020 10:13 PM) [facility]
[2020-10-24] MEDS ORDERED: CEPH500C PO (22:38)
[2020-10-27 01:11] LABS: GC PROBE Negative (Negative)
== END 2020-10-24 23:20 | disposition home or self-care (01) ==
LOC: ER 18:25
DX: N39.0 Urinary tract infection, site not specified (principal); R31.9 Hematuria, unspecified
CPT/HCPCS: 36415; 76856; 80053; 81001; 81025; 85025; 85610; 86850; 86900; 86901; 87086; 87491; 87591; 96361; 96374; 99285; J3010; J7030; Q0111

== ENCOUNTER 2021-11-25 20:50 | Emergency (ER) | payer SELFPAY ==
[~2021-11-25] VITALS: Ht 157.5 cm; Wt 71.0 kg
[~2021-11-25 20:50] MED LIST changes: +CEPH500C PO
[2021-11-25 23:24] LABS: BASO % 0 % (0-3); EOS # 0.1 x10^3/uL (0.0-0.7); EOS % 2 % (0-3); HEMATOCRIT 36.5 % (36.0-47.0); LYMPH % 18 % (24-48); MEAN CORPUSCULAR HEMOGLOBIN 26 pg (25-35); MEAN CORPUSCULAR HGB CONC 33 g/dL (31-37); MEAN CORPUSCULAR VOLUME 79 fL (79-100); MONO # 0.5 x10^3/uL (0.0-1.1); MONO % 9 % (0-9); NEUT # 3.9 x10^3/uL (1.8-7.7); NEUT % 71 % (31-73); PLATELET COUNT 173 x10^3/uL (140-400); RED CELL DISTRIBUTION WIDTH 20.6 % (11.5-14.5); WHITE BLOOD COUNT 5.6 x10^3/uL (4.0-11.0)
[2021-11-25 23:36] LABS: CALCIUM 8.1 mg/dL (8.5-10.1); CREATININE 0.6 mg/dL (0.6-1.0); GFR 116.6; POTASSIUM 3.6 mmol/L (3.5-5.1)
[2021-11-25 23:40] LABS: BILIRUBIN,URINE NEGATIVE (NEG); CLARITY,URINE CLEAR; COLOR,URINE YELLOW
[2021-11-25 23:41] LABS: BACTERIA,URINE 0 /HPF (0-FEW); NITRITE,URINE NEGATIVE (NEG); PH,URINE 6.5 (<5.0-8.0); PROTEIN,URINE TRACE mg/dL (NEG-TRACE); RBC,URINE OCC /HPF (0-2); WBC,URINE OCC /HPF (0-4)
[2021-11-25 23:44] LABS: INFLUENZA A PATIENT NEGATIVE (NEGATIVE); INFLUENZA B PATIENT NEGATIVE (NEGATIVE)
[2021-11-25 23:44] LABS: ALBUMIN 3.5 g/dL (3.4-5.0); ALBUMIN/GLOBULIN RATIO 0.8 (1.0-1.7); TOTAL BILIRUBIN 0.2 mg/dL (0.2-1.0); TOTAL PROTEIN 7.8 g/dL (6.4-8.2)
--- NOTE | 2021-11-25 23:49 | RAD ---
Exam: Ultrasound OB less than 14 weeks Indication: Vaginal bleeding Technique: Real-time grayscale and color Doppler images of the pelvis were obtained by the department hollow ware maker. Comparisons: None FINDINGS: Uterus measures 11 x 7.9 x 7.8 cm. Within the endometrium there is a gestational sac with internal yo lk sac and pole. [place]-rump length is measured at 2.5 cm corresponding to 9 weeks 2 days gestat ion. heart rate is measured at 173 bpm. Right ovary is not visualized. Left ovary measures 3.0 x 2.0 x 2.0 cm. Vascular flow in the left ovary. No free fluid identified in the pelvis. IMPRESSION: Single live intrauterine gestation measuring 9 weeks 2 days by LMP with concordant ultrasound. Electronically signed by: Yovanny Quinones MD (11/25/2021 11:47 PM) [facility]
--- NOTE | 2021-11-26 00:33 | PHYS DOC ---
Past Medical History Past Medical History: No Pertinent History Past Surgical History: Smoking Status: Never Smoker Alcohol Use: None Drug Use: None General Adult EDM: Chief Complaint: VAGINAL BLEEDING HPI: HPI: Patient is a 31 year old female 7 para 5 with 1 miscarriage presenting to the ED today complaining of spotting in and cramping that began at 5 PM today. Patient states 2 days ago she developed a cough and running nose. She states at 5 PM today she noted spotting when she wiped herself. Patient denies any back pain. Denies any fever. Denies any chest pain or shortness of breath. She states she received a COVID vaccine last year but not get influenza vaccine. She states her son has a cough and congestion as well. Review of Systems: Review of Systems: Constitutional: Denies fever or chills. [] Eyes: Denies change in visual acuity. [] HENT: Reports nasal congestion Respiratory: Reports cough, denies shortness of breath. [] Cardiovascular: Denies chest pain or edema. [] GI: Reports vaginal spotting and cramping, denies nausea, vomiting, bloody stools or diarrhea. [] : Denies dysuria. [] Musculoskeletal: Denies back pain or joint pain. [] Integument: Denies rash. [] Neurologic: Denies headache, focal weakness or sensory changes. [] Psychiatric: Denies depression or anxiety. [] Heart Score: C/O Chest Pain: N/A Risk Factors: Risk Factors: DM, Current or recent (<one month) smoker, HTN, HLP, family history of CAD, obesity. Risk Scores: Score 0 - 3: 2.5% MACE over next 6 weeks - Discharge Home Score 4 - 6: 20.3% MACE over next 6 weeks - Admit for Clinical Observation Score 7 - 10: 72.7% MACE over next 6 weeks - Early Invasive Strategies Allergies: Allergies: Allergies Coded Allergies Type Severity Reaction Last Updated Verified No Known Drug Allergies 04/03/18 No Physical Exam: PE: Constitutional: Well developed, well nourished, no acute distress, non-toxic appearance. [] HENT: Normocephalic, atraumatic, bilateral external ears normal, oropharynx moist, no oral exudates, nose normal. [] Eyes: PERRLA, EOMI, conjunctiva normal, no discharge. [] Neck: Normal range of motion, no tenderness, supple, no stridor. [] Cardiovascular:Heart rate regular rhythm, no murmur [] Lungs & Thorax: Bilateral breath sounds clear to auscultation [] Abdomen: Bowel sounds normal, soft, no tenderness, no masses, no pulsatile masses. [] Pelvic exam External pelvic appears normal, cervix visualized, closed, no CMT, no adnexal tenderness, trace amount of brownish discharge in the vaginal vault consistent with spotting Skin: Warm, dry, no erythema, no rash. [] Back: No tenderness, no CVA tenderness. [] Extremities: No tenderness, no cyanosis, no clubbing, ROM intact, no edema. [] Neurologic: Alert and oriented X 3, normal motor function, normal sensory function, no focal deficits noted. [] Psychologic: Affect normal, judgement normal, mood normal. [] Current Patient Data: Labs: Laboratory Tests Test 11/25/21 23:03 11/25/21 23:10 11/25/21 23:19 Urine Collection Type Unknown Urine Color Yellow Urine Clarity Clear Urine pH 6.5 (<5.0-8.0) Urine Specific [place] >=1.030 (1.000-1.030) Urine Protein Trace mg/dL (NEG-TRACE) Urine Glucose (UA) Negative mg/dL (NEG) Urine Ketones (Stick) Negative mg/dL (NEG) Urine Blood Negative (NEG) Urine Nitrite Negative (NEG) Urine Bilirubin Negative (NEG) Urine Urobilinogen Dipstick 1.0 mg/dL (0.2 mg/dL) Urine Leukocyte Esterase Negative (NEG) Urine RBC Occ /HPF (0-2) Urine WBC Occ /HPF (0-4) Urine Squamous Epithelial Cells Few /LPF Urine Bacteria 0 /HPF (0-FEW) Urine Mucus Marked /LPF White Blood Count 5.6 x10^3/uL (4.0-11.0) Red Blood Count 4.60 x10^6/uL (3.50-5.40) Hemoglobin 12.0 g/dL (12.0-15.5) Hematocrit 36.5 % (36.0-47.0) Mean Corpuscular Volume 79 fL (79-100) Mean Corpuscular Hemoglobin 26 pg (25-35) Mean Corpuscular Hemoglobin Concent 33 g/dL (31-37) Red Cell Distribution Width 20.6 % (11.5-14.5) H Platelet Count 173 x10^3/uL (140-400) Neutrophils (%) (Auto) 71 % (31-73) Lymphocytes (%) (Auto) 18 % (24-48) L Monocytes (%) (Auto) 9 % (0-9) Eosinophils (%) (Auto) 2 % (0-3) Basophils (%) (Auto) 0 % (0-3) Neutrophils # (Auto) 3.9 x10^3/uL (1.8-7.7) Lymphocytes # (Auto) 1.0 x10^3/uL (1.0-4.8) Monocytes # (Auto) 0.5 x10^3/uL (0.0-1.1) Eosinophils # (Auto) 0.1 x10^3/uL (0.0-0.7) Basophils # (Auto) 0.0 x10^3/uL (0.0-0.2) Platelet Estimate Pending Maternal Serum HCG Beta Subunit 436685 mIU/mL (0-5) H Sodium Level 139 mmol/L (136-145) Potassium Level 3.6 mmol/L (3.5-5.1) Chloride Level 102 mmol/L (98-107) Carbon Dioxide Level 26 mmol/L (21-32) Anion Gap 11 (6-14) Blood Urea Nitrogen 9 mg/dL (7-20) Creatinine 0.6 mg/dL (0.6-1.0) Estimated GFR (Cockcroft-Gault) 116.6 BUN/Creatinine Ratio 15 (6-20) Glucose Level 97 mg/dL (70-99) Calcium Level 8.1 mg/dL (8.5-10.1) L Total Bilirubin 0.2 mg/dL (0.2-1.0) Aspartate Amino Transferase (AST) 12 U/L (15-37) L Alanine Aminotransferase (ALT) 12 U/L (14-59) L Alkaline Phosphatase 62 U/L (46-116) Total Protein 7.8 g/dL (6.4-8.2) Albumin 3.5 g/dL (3.4-5.0) Albumin/Globulin Ratio 0.8 (1.0-1.7) L Influenza Type A Antigen Negative (NEGATIVE) Influenza Type B Antigen Negative (NEGATIVE) SARS-CoV-2 Antigen (Rapid) Negative (NEGATIVE) Laboratory Tests 11/25/21 23:10 Laboratory Tests 11/25/21 23:10 Microbiology 11/25/21 Wet Prep - Final, Complete Vital Signs: Vital Signs Date Time Temp Pulse Resp B/P (MAP) Pulse Ox O2 Delivery O2 Flow Rate FiO2 11/25/21 21:00 98.3 106 18 136/69 (91) 100 Room Air 98.3 EKG: EKG: [] Radiology/Procedures: Radiology/Procedures: []PROCEDURE: OB < 14 WKS Exam: Ultrasound OB less than 14 weeks Indication: Vaginal bleeding Technique: Real-time grayscale and color Doppler images of the pelvis were obtained by the department large animal husbandry technician. Comparisons: None FINDINGS: Uterus measures 11 x 7.9 x 7.8 cm. Within the endometrium there is a gestational sac with internal yolk sac and pole. [place]-rump length is measured at 2.5 cm corresponding to 9 weeks 2 days gestation. heart rate is measured at 173 bpm. Right ovary is not visualized. Left ovary measures 3.0 x 2.0 x 2.0 cm. Vascular flow in the left ovary. No free fluid identified in the pelvis. IMPRESSION: Single live intrauterine gestation measuring 9 weeks 2 days by LMP with concordant ultrasound. Electronically signed by: Yovanny Carter MD (11/25/2021 11:47 PM) [facility] DICTATED and SIGNED BY: YOVANNY CARTER MD DATE: 11/25/21 [id number] 0 Course & Med Decision Making: Course & Med Decision Making Pertinent Labs and Imaging studies reviewed. (See chart for details) This a 31-year-old female patient 7 para 5 with 1 miscarriage presenting today with spotting and cramping in . Symptoms began today at 5 PM. Patient also has a cough and nasal congestion for 2 days. CBC, CMP, UA -no acute findings. Beta hCG 149,392. OB ultrasound noted for single live intrauterine gestation measuring 9 weeks 2 days by LMP with concordant ultrasound, heart rate 173. Blood group O+ Negative influenza a and B, negative rapid Covid test. Patient was discharged home with instructions to maintain strict bedrest until seen by the HOME ADMINISTRATOR, no sex, no vaginal inserts. She already has an OB she follows up with. Recommended following up as soon as possible. Provided return precautions and discharged in stable condition Mahendra Disclaimer: Mahendra Disclaimer: This electronic medical record was generated, in whole or in part, using a voice recognition dictation system. Departure Departure Impression: Primary Impression: Threatened miscarriage in early Additional Impressions: Upper respiratory infection Qualified Codes: J06.9 - Acute upper respiratory infection, unspecified Cough Disposition: HOME / SELF CARE / HOMELESS Condition: STABLE Referrals: NATALIE DE JESUS CNM (PCP) Call your doctor in the morning and set up a follow-up appointment Patient Instructions: Cough, Child, [id number], Threatened Miscarriage, [id number], Upper Respiratory Infection, Child Additional Instructions: You were evaluated in the emergency room with an upper respiratory infection as well as spotting in . We highly encourage you to maintain bedrest, no strenuous activities, no sex, no insertion of anything in your vagina until seen by the HOME ADMINISTRATOR. Please call your doctor/OBGYN and set up an appointment and then next 1 to 2 days. MIRTHA EWING APRN Nov 26, 2021 00:33
[2021-11-26 00:56] LABS: PLT ESTIMATE ADEQUATE (ADEQUATE)
[2021-11-26 00:57] LABS: ANISOCYTOSIS MOD; POLYCHROMASIA SLIGHT
[2021-11-26 01:00] VITALS: BP 113/59
--- NOTE | 2021-11-26 17:03 | NUR ---
IP: Informed pt of negative covid test. She verbalized understanding.
[2021-11-27 16:13] LABS: GC PROBE Negative (Negative)
== END 2021-11-26 01:02 | disposition home or self-care (01) ==
LOC: ER 20:50
DX: O20.0 Threatened abortion (principal); Z20.822 Contact with and (suspected) exposure to COVID-19; O99.511 Diseases of the respiratory system complicating pregnancy, first trimester; J06.9 Acute upper respiratory infection, unspecified; Z3A.09 9 weeks gestation of pregnancy
CPT/HCPCS: 76801; 80053; 81001; 84702; 85025; 87428; 87491; 87591; 99284; C9803; Q0111; U0003